=== PATIENT | female | born 2000 | race Caucasian/White ===

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

== ENCOUNTER 2019-09-28 16:26 | Emergency (ER) | payer MEDICAID, OTHER ==
[2019-09-28 16:32] VITALS: BP 132/80
== END 2019-09-28 17:07 | disposition left against medical advice (07) ==
LOC: ED 16:26
DX: S81.012A Laceration without foreign body, left knee, initial encounter (principal); X58.XXXA Exposure to other specified factors, initial encounter; Y92.9 Unspecified place or not applicable; Z53.21 Procedure and treatment not carried out due to patient leaving prior to being seen by health care provider
CPT/HCPCS: 99281